=== PATIENT | female | born 1995 | race African-American/Black ===

== ENCOUNTER 2018-08-16 22:24 | Inpatient (IN) | payer OTHER ==
[~2018-08-16] VITALS: Ht 165.1 cm; Wt 74.9 kg
[2018-08-16] MEDS ORDERED: PREN-93 PO (22:35)
[2018-08-16 22:36] VITALS: BP 121/63; PULSE 93; RESP 18; Ht 165.1 cm; Wt 74.9 kg
--- NOTE | 2018-08-16 22:41 | TRIAGE ---
OB Triage Datetime Report Generated by CPN: 08/16/2018 22:40 Datetime: 08/16/2018 22:32 Assessment Type: Triage Maternal Assessment Level of Consciousness: Fully Conscious DTR's/Clonus: DTRs 2+; No Clonus Headache: Denies Blurred Vision: No Respiratory Effort: Unlabored; Regular Rhythm; Equal Expansion Breath Sounds, Left: Clear and Equal Breath Sounds, Right: Clear and Equal Nausea/Vomiting: Denies RUQ Epigastric Pain: Denies Lower Extremities Edema: None Degree: None Upper Extremities Edema: None Degree: None Facial Edema: None Fall Risk Assessment History of Falling: (0) No Secondary Diagnosis: (0) No Ambulatory Aid: (0) Bedrest/Nurse Assist IV Therapy: (0) No Gait: (0) Normal/Bedrest/Immobile Mental Status: (0) Oriented to Own Ability Fall Score: 0 Fall Risk Score Definition: No Risk: No action required Datetime: 08/16/2018 22:30 Time of Arrival: 08/16/2018 22:20 EGA: 38.0 Arrived By: Wheelchair Arrived From: Home Chief Complaint: PT. HERE C/O UC'S SINCE 1999 Movement: Present Contractions: Regular Rupture of Membranes: Denies Vaginal Bleeding: None Vaginal Discharge: Present Recent Sexual Intercouse: Denies Abdominal Trauma: Not Applicable Patient Complaints: Contractions; Cramping Time Provider Notified: 08/16/2018 22:23 Provider Notified: ARDALAN Vaginal Exam Dilatation (cms): 5.0 Vaginal Exam Dilatation (cms): 5.0 Effacement (%): 90 Station: -2 Exam By: ASHLEIGH Membrane Status: Intact Vaginal Bleeding: None Cervix, Consistency: Soft Cervix, Position: Midposition Presentation 'A': Cephalic Datetime: 08/16/2018 22:28 Labor Evaluation Monitor Mode: External Heart Rate Monitor Mode: External US
[2018-08-16] MEDS ORDERED: IBUPROFEN 600 MG TAB PO PRN (23:00)
[2018-08-16] MEDS ORDERED: AMPICILLIN 2 GM/NS (PMX) 100 ML IV ONE (23:00)
[2018-08-16] MEDS ORDERED: CARBOPROST 250 MCG INJ IM PRN (23:00)
[2018-08-16] MEDS ORDERED: LIDOCAINE 1% (MPF) 30 ML INJ INJ PRN (23:00)
[2018-08-16] MEDS ORDERED: OXYTOCIN 30 UNITS/LR 500 ML IV PRN (23:00)
[2018-08-16] MEDS ORDERED: OXYTOCIN 30 UNITS/LR 500 ML IV SCH ×2 (23:00)
[2018-08-16] MEDS: LACTATED RINGER'S 1,000 ML IV SCH (23:00)
[2018-08-16] MEDS ORDERED: METHYLERGONOVINE 0.2 MG INJ IM PRN (23:00)
[2018-08-16] MEDS ORDERED: BUTORPHANOL 2 MG INJ IV PRN (23:00)
[2018-08-16] MEDS ORDERED: MISOPROSTOL 200 MCG TAB PR PRN (23:00)
[2018-08-17] MEDS ORDERED: MINERAL OIL LIGHT 10 ML VIAL TOP ONE (01:00)
--- NOTE | 2018-08-17 02:06 | HP ---
Date/Time of Note Date/Time of Note DATE: 08/17/18 TIME: 02:02 OB - History Hx of Present Free Text/Dictation August 16, 2018 : 4 Para: 3 Spontaneous : 0 Therapeutic : 0 Care: Other (Nasal care with the clinic in [facility]. Records are not available) Other Concerns: 23-year-old G4, P3 with IUP at 38 weeks and care with clinic in the [facility]. Patient presented with complaint of labor and was noted to be 5 cm dilated/80% effaced. Denies any complication during her antepartum course. GBS unknown. records are not available. Patient was supposed to deliver a [place] hospital however due to active labor presented to [facility]. Patient is a smoker. Admits that has been smoking during . Denies any alcohol using her drug using. She denies any comp occasions during her course. Past Family/Social History * Past Medical, Surgical, Family and Obstetric Histories reviewed from chart. OB Admission Exam Vital Signs Vital Signs Vital Signs Date Temp Pulse Resp B/P (MAP) Pulse Ox O2 O2 Flow FiO2 Time Delivery Rate 08/16/18 97.9 93 18 121/63 Room Air 22:36 (82) Physical Exam HEENT: WNL Lungs: Clear Abdomen: WNL Extremities: Normal Cervical Dilatation: 5cm Effacement: 75% Station: -2 Membranes: Intact Heart Rate: 130's Accelerations: Accelerations Present Decelerations: No Decelerations Varibility: Moderate Contractions on Admission: < 5 Minutes Apart Intensity: Moderate Last 72 hours Lab Results CBC & BMP 08/16/18 23:21 OB Assessment/Plan Reason for admission: active labor Other Assessment: IUP at 38 weeks Active labor GBS unknown records are not available Admit the patient to labor and delivery for management of labor GBS prophylaxis. Will be started on ampicillin or penicillin for GBS prophylaxis GBS swab was obtained and was submitted, in case after delivery needed by neonat ologist Management of labor Draw labs Anticipate Pain control with epidural if patient desires MAGAN ZELAYA MD Aug 17, 2018 02:06
--- NOTE | 2018-08-17 02:09 | LDN ---
Date/Time of Note Date/Time of Note DATE: 08/17/18 TIME: 02:06 Delivery Summary August 17, 2018 I was called, since the patient had been complete and had urged to push., AROM was performed. Clear fluid noted. Patient started pushing I was called for delivery, When I arrived to the room noted patient had precipitous delivery. Baby was delivered by RN. No complication. Cord was clamped and cut. Placenta delivered spontaneously shortly after delivery of the baby Perineum evaluated. There was first-degree right labial laceration. Fundus was firm. Hemostasis was complete and was obtained by uterine massage First-degree right labial laceration repaired after local infiltration with lidocaine and using 3-0 chromic Placenta Delivered: Spontaneously Meconium: none Episiotomy: No Indication for episiotomy N/A Perineal laceration: 1 Laceration repair: First-degree right labial superficial laceration noted and repaired using 3-0 chromic after local infiltration of 3 cc lidocaine Anesthesia type: None Estimated blood loss: 400 Sponge & Needle done & correct: Yes All needle counts correct: Yes Any foreign bodies felt in the: No Infant Delivery Information Sex Infant Sex: female Apgars 1 Minute: 8 5 Minute: 9 Suctioning Nose & mouth suctioned at kayla: Yes Delee suction performed: Yes Umbilical Cord Umbilical cord with: 3 Vessels Cord presentations: no nuchal cord Cord Blood was obtained: Yes MAGAN ZELAYA MD Aug 17, 2018 02:09
[2018-08-17] MEDS ORDERED: OXYTOCIN 30 UNITS/LR 500 ML IV SCH (02:13)
[2018-08-17] MEDS ORDERED: ZOLPIDEM 5 MG TAB PO PRN (02:30)
[2018-08-17] MEDS ORDERED: ACETAMINOPHEN 325 MG TAB PO PRN (02:30)
[2018-08-17] MEDS ORDERED: MISOPROSTOL 200 MCG TAB PR PRN (02:30)
[2018-08-17] MEDS ORDERED: CARBOPROST 250 MCG INJ IM PRN (02:30)
[2018-08-17] MEDS ORDERED: DIPHENHYDRAMINE 25 MG CAP PO PRN (02:30)
[2018-08-17] MEDS ORDERED: WITCH HAZEL/GLYCERIN PAD PR PRN (02:30)
[2018-08-17] MEDS ORDERED: ONDANSETRON 4 MG INJ IV PRN (02:30)
[2018-08-17] MEDS ORDERED: LANOLIN HPA 1 PKT TOP PRN (02:30)
[2018-08-17] MEDS ORDERED: OXYTOCIN 30 UNITS/LR 500 ML IV PRN (02:30)
[2018-08-17] MEDS ORDERED: NACL 0.9% 3 ML SYG IV SCH (02:30)
[2018-08-17] MEDS ORDERED: AMPICILLIN 1 GM/NS (PMX) 50 ML IV SCH (03:00)
[2018-08-17 03:10] VITALS: BP 116/55; PULSE 75; RESP 20
[2018-08-17] MEDS: HYDROCODONE/APAP (5/325) TAB PO PRN ×2 (04:03→16:08)
[2018-08-17] MEDS: IBUPROFEN 600 MG TAB PO SCH ×5 (04:04→23:31)
[2018-08-17] MEDS: SENNA/DOCUSATE NA (8.6MG/50MG) TAB PO SCH ×3 (04:10→21:00)
[2018-08-17 04:56] VITALS: BP 119/49; PULSE 68; RESP 20
[2018-08-17] MEDS: LACTATED RINGER'S 1,000 ML IV SCH ×2 (06:41→14:41)
[2018-08-17 08:00] VITALS: BP 134/80; PULSE 72; RESP 19
[2018-08-17 16:00] VITALS: BP 117/59; PULSE 73; RESP 17
[2018-08-17 19:45] VITALS: BP 121/62; PULSE 80; RESP 18
[2018-08-18] MEDS: IBUPROFEN 600 MG TAB PO SCH ×2 (04:29→10:20)
[2018-08-18 04:51] VITALS: BP 116/69; PULSE 70; RESP 18
[2018-08-18 07:45] VITALS: BP 122/80; PULSE 70; RESP 18
[2018-08-18] MEDS: SENNA/DOCUSATE NA (8.6MG/50MG) TAB PO SCH (09:00)
--- NOTE | 2018-08-18 12:18 | DS ---
Date/Time of Note Date/Time of Note DATE: 08/18/18 TIME: 12:17 Obstetrical Discharge Record Final Diagnosis Final Diagnosis: Term delivered Vaginal Delivery Obstetrical Delivery: Spontaneous, Laceration, Repaired Complications Augmentation: No Induction: No Rupture of Membranes: No Condition on Discharge Physical Assessment Last Vitals: vss afebrile Voiding: Yes Bowel Movement: Yes Breast: Soft, non-tender Abdomen and Incision: n/a Episiotomy: n/a Calf Tenderness: No Patient Condition: Stable MARLIN RAMEY MD Aug 18, 2018 12:18
--- NOTE | 2018-08-18 12:19 | PD.PPDC ---
BEHAVIORAL THERAPIST Discharge Instruction Diagnosis [id number] Final Diagnosis: Flsxe8g s/p Condition [id number] Patient Condition: Rwnmj3m Stable Diet Xiwcg7Se Diet: Qxple7k Resume Regular Diet Activity/Restrictions [id number] Activity: Skpki6w May Shower [id number] Restrictions: Ldzsa0e No Lifting No Sexual Activity Nothing in the Vagina No [place] No Tampons, douche Follow-up Follow-up with Physician: 2, Week/Weeks Return to clinic for Zrcye3By COUNSELING CASE MANAGER Instructions: Dfrdb1c Fever greater than 101 Chills Worsening abdominal pain Excessive Vaginal Bleeding More than 2 pads per hour Unable to tolerate diet [id number] OB Instructions: [id number] Breast Tenderness Depression Blurried Vision Headache MARLIN RAMEY MD Aug 18, 2018 12:19
[2018-08-19] MEDS ORDERED: VARICELLA VACCINE LIVE/PF 1,350 UNIT/0.5 ML ML SC* ONE (09:00)
[2018-08-19] MEDS ORDERED: MEASLES,MUMPS,RUBELLA VACCINE INJ SC* ONE (09:00)
[2018-08-19] MEDS ORDERED: DIPHTH/TET/ACEL PERTUSS (ADULT) 0.5 ML VIAL IM* ONE (09:00)
--- NOTE | 2018-08-19 14:28 | DELSUM ---
Delivery Summary A-C Datetime Report Generated by CPN: 08/19/2018 14:27 DELIVERY PERSONNEL Derrick Boat Captain: Rios, Simona MATERNAL INFORMATION Delivery Anesthesia: Local Medications in Delivery: 30 UNITS PITOCIN Delivery QBL (ml): 400 Placenta Cultured: No Maternal Complications: None LABOR SUMMARY EDC: 08/30/2018 00:00 No. Babies in Womb: 1 Attempted: No Labor Anesthesia: None LABOR INFORMATION Reason for Induction: Not Applicable Onset of Labor: 08/16/2018 18:00 Complete Dilatation: 08/17/2018 00:41 Oxytocin: N/A Group B Beta Strep: Done, Result Unknown Antibiotics # of Doses: 1 Steroids Given: None Reason Steroids Not Administered: Not Applicable MEMBRANES Membranes Rupture Method: Artificial Rupture of Membranes: 08/17/2018 00:44 Length of Rupture (hr): 0.33 Amniotic Fluid Color: Clear Amniotic Fluid Amount: Moderate Amniotic Fluid Odor: None STAGES OF LABOR Stage 1 hr: 6 Stage 1 min: 41 Stage 2 hr: 0 Stage 2 min: 23 Stage 3 hr: 0 Stage 3 min: 8 Total Time in Labor hr: 7 Total Time in Labor min: 12 VAGINAL DELIVERY Laceration Extension: First Degree Laceration Type: Perineal Other Laceration: RIGHT LABIAL Laceration Repair: Yes Initial Vag Sponge Count: 10 Final Vag Sponge Count: 10 Initial Vag Sharps Count: 1+1 Final Vag Sharps Count: 2 Sponge Count Correct: Yes; Vaginal Sweep Performed Sharps Count Correct: Yes BABY A INFORMATION Infant Delivery Date/Time: 08/17/2018 01:04 Method of Delivery: Vaginal Born in Route : No : N/A Forceps: N/A Vacuum Extraction: N/A Shoulder Dystocia : No SHOULDER DYSTOCIA BABY A Delivery Date/Time: 08/17/2018 01:04 PRESENTATION/POSITION BABY A Presentation: Cephalic Cephalic Presentation: Vertex Breech Presentation: N/A PLACENTA INFORMATION BABY A Placenta Delivery Time : 08/17/2018 01:12 Placenta Method of Delivery: Expressed Placenta Status: Delivered SCORES BABY A Heart Rate 1 min: >100 bpm Resp Effort 1 min: Good Cry Reflex Irritability 1 min: Cough/Sneeze/Pulls Away Muscle Tone 1 min: Active Motion Color 1 min: Blue/Pale Resuscitation Effort 1 min: Tactile Stimulation SCORE 1 MIN: 8 Heart Rate 5 min: >100 bpm Resp Effort 5 min: Good Cry Reflex Irritability 5 min: Cough/Sneeze/Pulls Away Muscle Tone 5 min: Active Motion Color 5 min: Body [place], Extremit Blue Resuscitation Effort 5 min: Tactile Stimulation SCORE 5 MIN: 9 INFORMATION BABY A Gestational Age at Delivery: 38.1 Gestational Status: Early Term- 37- 38.6 Weeks Outcome : Liveborn Infant Condition : Stable Sex: Female IDENTIFICATION/MEDS BABY A ID Band Number: [id number] ID Band Location: Right Leg; Left Arm Sensor Applied: Yes Sensor Number: [id number] Sensor Location : Cord Clamp Vitamin K Given : Deferred by Parents Erythromycin Given: Not Given WEIGHT/LENGTH BABY A Birthweight (gm): 2535 Infant Weight (lb): 5 Weight (oz): 9 Infant Length (in): 17.50 Infant Length (cm): 44.45 CORD INFORMATION BABY A No. Cord Vessels: 3 Nuchal Cord : N/A Cord Blood Taken: Yes Infant Suction: Mouth; Nose ASSESSMENT BABY A Complications: None Physical Findings at Delivery: Within Normal Limits Respirations: Appears Normal Reinforcement Maker/ALS Called : No Care By: ZOEY Transferred To: Remains with Mother
== END 2018-08-18 13:10 | disposition home or self-care (01) | DRG 807 ==
LOC: OBT 22:24 → L-D 22:25 → PP1 08-17 03:00
PROVIDERS: ADMIT Obstetrics & Gynecology Obstetrics; ATTEND Obstetrics & Gynecology Obstetrics
PROC: 10E0XZZ Delivery of Products of Conception, External Approach (ICD-10-PCS; principal; 2018-08-17)
PROC: 10907ZC Drainage of Amniotic Fluid, Therapeutic from Products of Conception, Via Natural or Artificial Opening (ICD-10-PCS; 2018-08-17)
PROC: 0HQ9XZZ Repair Perineum Skin, External Approach (ICD-10-PCS; 2018-08-17)
DX: O62.3 Precipitate labor (principal); O99.334 Smoking (tobacco) complicating childbirth; F17.200 Nicotine dependence, unspecified, uncomplicated; O70.0 First degree perineal laceration during delivery; Z37.0 Single live birth; Z3A.38 38 weeks gestation of pregnancy
CPT/HCPCS: 80307; 81001; 85025; 85610; 85730; 86592; 86703; 86762; 86850; 86900; 86901; 87081; 87340; G0463; J0290; J2590; J7120